=== PATIENT | female | born 1950 | race Caucasian/White ===

== ENCOUNTER 2021-10-30 09:14 | Outpatient (CLI) | payer MEDICARE ==
[2021-10-30] MEDS ORDERED: Magnevist 469MG/ML 20 ML VIAL ONE (15:35)
== END 2021-10-30 09:15 | disposition home or self-care (01) ==
LOC: CSHMRI 09:14
PROVIDERS: ATTEND Internal Medicine Gastroenterology
DX: K74.60 Unspecified cirrhosis of liver (principal)
CPT/HCPCS: 74183; 82565; A9579

== ENCOUNTER 2022-07-09 09:27 | Outpatient (CLI) | payer MEDICARE | END 2022-07-09 09:28 | disposition home or self-care (01) | LOC: CSHULT 09:27 | PROVIDERS: ATTEND Internal Medicine Gastroenterology | DX: R93.2 Abnormal findings on diagnostic imaging of liver and biliary tract (principal); K59.00 Constipation, unspecified; R76.8 Other specified abnormal immunological findings in serum; K74.60 Unspecified cirrhosis of liver | CPT/HCPCS: 76705 ==

== ENCOUNTER 2023-02-04 10:07 | Outpatient (CLI) | payer MEDICARE ==
[2023-02-04] MEDS ORDERED: Magnevist 469MG/ML 20 ML VIAL ONE (10:28)
== END 2023-02-04 10:08 | disposition home or self-care (01) ==
LOC: CSHMRI 10:07
PROVIDERS: ATTEND Physician Assistant Medical
DX: K74.60 Unspecified cirrhosis of liver (principal); R93.2 Abnormal findings on diagnostic imaging of liver and biliary tract; Z86.010 Personal history of colon polyps; I77.1 Stricture of artery
CPT/HCPCS: 74183; A9579